=== PATIENT | female | born 1985 | race Two or more races ===

== ENCOUNTER 2016-10-18 19:22 | Emergency (ER) | payer OTHER ==
[~2016-10-18] VITALS: Ht 152.4 cm; Wt 79.4 kg
[2016-10-18] MEDS ORDERED: IV NORMAL SALINE 1000ML BAG 1,000 ML IV SCH (19:59)
[2016-10-18] MEDS ORDERED: KETOROLAC 15 MG/ML VIAL. IV ONE (20:00)
[2016-10-18] MEDS ORDERED: ACETAMINOPHEN 500 MG TABLET PO ONE (20:00)
[2016-10-18] MEDS ORDERED: DIAZEPAM 5 MG TABLET PO ONE (20:00)
[2016-10-18 20:11] LABS: BILIRUBIN,URINE NEGATIVE (NEG); GLUCOSE,URINE NEGATIVE (NEG); NITRITE,URINE NEGATIVE (NEG); PROTEIN,URINE NEGATIVE (NEG-TRACE); UROBILINOGEN,URINE 0.2 mg/dL (0.2 mg/dL)
[2016-10-18 20:19] LABS: BACTERIA,URINE FEW /HPF (0-FEW); RBC,URINE 0 /HPF (0-2); SQUAMOUS EPITHELIAL CELL,UR OCC /LPF; WBC,URINE OCC /HPF (0-4)
[2016-10-18 21:08] LABS: BASO # 0.1 x10^3/uL (0.0-0.2); BASO % 1 % (0-3); EOS % 2 % (0-3); HEMATOCRIT 41.9 % (36.0-47.0); HEMOGLOBIN 14.3 g/dL (12.0-15.5); LYMPH # 3.6 x10^3/uL (1.0-4.8); LYMPH % 34 % (24-48); MEAN CORPUSCULAR HEMOGLOBIN 31 pg (25-35); MEAN CORPUSCULAR HGB CONC 34 g/dL (31-37); MEAN CORPUSCULAR VOLUME 92 fL (79-100); MONO % 5 % (0-9); NEUT % 59 % (31-73); PLATELET COUNT 238 x10^3/uL (140-400); RED BLOOD COUNT 4.55 x10^6/uL (3.50-5.40); RED CELL DISTRIBUTION WIDTH 12.5 % (11.5-14.5); WHITE BLOOD COUNT 10.7 x10^3/uL (4.0-11.0)
[2016-10-18 21:17] LABS: CALCIUM 9.2 mg/dL (8.5-10.1); CREATININE 0.8 mg/dL (0.6-1.0); GFR 83.7
[2016-10-18 21:23] LABS: ALBUMIN 3.6 g/dL (3.4-5.0); TOTAL BILIRUBIN 0.3 mg/dL (0.2-1.0); TOTAL PROTEIN 7.2 g/dL (6.4-8.2)
--- NOTE | 2016-10-18 21:53 | PHYS DOC ---
Past Medical History Past Medical History: No Pertinent History Past Surgical History: Tubal ligation, Other Additional Past Surgical Histo: HAND SURG, LEEP Alcohol Use: Occasionally Drug Use: None Adult General Chief Complaint Chief Complaint: HEADACHE HPI HPI Patient is a 31 year old female who presents with fatigue, STEIN, lightheadedness. Patient reports she has been having symptoms for more than a week. She describes a throbbing pain in her L lateral neck that is causing a mild STEIN. She also reports feeling a little lightheaded, has a scratchy throat, and has intermittent sharp pains in the center of her chest (not at this time). No fever, no SOB. Patient has tried tylenol and aleve with insufficient relief but has not taken anything today for symptoms. Review of Systems Review of Systems Constitutional: Lightheaded. Denies fever or chills Eyes: Denies change in visual acuity or eye pain HENT: Scratchy throat. Denies nasal congestion Respiratory: Denies cough or shortness of breath Cardiovascular: Intermittent substernal chest pain GI: Denies abdominal pain, nausea, vomiting, bloody stools or diarrhea : Denies dysuria or hematuria Musculoskeletal: Denies back pain or joint pain Integument: Denies rash or skin lesions Neurologic: Posterior headache. Denies focal weakness or sensory changes Current Medications Current Medications Current Medications Medications (Trade) Dose Ordered Sig/Avelino Start Time Stop Time Status Last Admin Dose Admin Acetaminophen (Tylenol) 1,000 mg 1X ONCE 10/18/16 20:00 10/18/16 20:09 DC 10/18/16 21:12 1,000 MG Diazepam (Valium) 5 mg 1X ONCE 10/18/16 20:00 10/18/16 20:09 DC 10/18/16 21:13 5 MG Ketorolac Tromethamine (Toradol) 15 mg 1X ONCE 10/18/16 20:00 10/18/16 20:09 DC 10/18/16 21:13 15 MG Sodium Chloride (Iv Sodium Chloride 0.9% 1000ml Bag) 1,000 ml @ 1,000 mls/hr Q1H 10/18/16 19:59 10/18/16 20:58 DC 10/18/16 21:13 1,000 MLS/HR Allergies Allergies Allergies Coded Allergies Type Severity Reaction Last Updated Verified No Known Drug Allergies 10/18/16 No Physical Exam Physical Exam Constitutional: Well developed, well nourished, no acute distress, non-toxic appearance HENT: Normocephalic, atraumatic, bilateral external ears normal. Oropharynx clear without erythema or exudate Eyes: PERRL, EOMI, conjunctiva normal, no discharge Neck: Normal range of motion, no stridor. Knot in paraspinal muscle on L posterior neck Cardiovascular: Heart rate normal, regular rhythm, no murmur Lungs & Thorax: Bilateral breath sounds clear to auscultation Abdomen: Bowel sounds normal, soft, non-distended, no TTP Skin: Warm, dry, no erythema, no rash Extremities: No obvious deformity, no edema Neurologic: Alert and oriented X 3, GCS 15, CN II-XII grossly intact, strength intact and symmetrical throughout, sensation to light touch intact throughout, no dystaxia noted Current Patient Data Vital Signs Vital Signs Date Time Temp Pulse Resp B/P Pulse Ox O2 Delivery O2 Flow Rate FiO2 10/18/16 22:00 150/75 10/18/16 21:30 80 23 100 10/18/16 20:00 Room Air 10/18/16 19:28 99.9 99.9 Lab Values Laboratory Tests Test 10/18/16 19:02 10/18/16 19:55 10/18/16 21:00 POC Urine HCG, Qualitative Hcg negative (Negative) Urine Color Yellow Urine Clarity Clear Urine pH 6.0 Urine Specific Mora 1.010 Urine Protein Negativemg/dL (NEG-TRACE) Urine Glucose (UA) Negativemg/dL (NEG) Urine Ketones (Stick) Negativemg/dL (NEG) Urine Blood Negative (NEG) Urine Nitrite Negative (NEG) Urine Bilirubin Negative (NEG) Urine Urobilinogen Dipstick 0.2mg/dL (0.2 mg/dL) Urine Leukocyte Esterase Negative (NEG) Urine RBC 0/HPF (0-2) Urine WBC Occ/HPF (0-4) Urine Squamous Epithelial Cells Occ/LPF Urine Bacteria Few/HPF (0-FEW) White Blood Count 10.7x10^3/uL (4.0-11.0) Red Blood Count 4.55x10^6/uL (3.50-5.40) Hemoglobin 14.3g/dL (12.0-15.5) Hematocrit 41.9% (36.0-47.0) Mean Corpuscular Volume 92fL (79-100) Mean Corpuscular Hemoglobin 31pg (25-35) Mean Corpuscular Hemoglobin Concent 34g/dL (31-37) Red Cell Distribution Width 12.5% (11.5-14.5) Platelet Count 238x10^3/uL (140-400) Neutrophils (%) (Auto) 59% (31-73) Lymphocytes (%) (Auto) 34% (24-48) Monocytes (%) (Auto) 5% (0-9) Eosinophils (%) (Auto) 2% (0-3) Basophils (%) (Auto) 1% (0-3) Neutrophils # (Auto) 6.3x10^3uL (1.8-7.7) Lymphocytes # (Auto) 3.6x10^3/uL (1.0-4.8) Monocytes # (Auto) 0.6x10^3/uL (0.0-1.1) Eosinophils # (Auto) 0.2x10^3/uL (0.0-0.7) Basophils # (Auto) 0.1x10^3/uL (0.0-0.2) Sodium Level 141mmol/L (136-145) Potassium Level 4.0mmol/L (3.5-5.1) Chloride Level 104mmol/L (98-107) Carbon Dioxide Level 25mmol/L (21-32) Anion Gap 12 (6-14) Blood Urea Nitrogen 16mg/dL (7-20) Creatinine 0.8mg/dL (0.6-1.0) Estimated GFR (Cockcroft-Gault) 83.7 BUN/Creatinine Ratio 20 (6-20) Glucose Level 113mg/dL (70-99) H Calcium Level 9.2mg/dL (8.5-10.1) Total Bilirubin 0.3mg/dL (0.2-1.0) Aspartate Amino Transferase (AST) 19U/L (15-37) Alanine Aminotransferase (ALT) 32U/L (14-59) Alkaline Phosphatase 56U/L (46-116) Total Protein 7.2g/dL (6.4-8.2) Albumin 3.6g/dL (3.4-5.0) Albumin/Globulin Ratio 1.0 (1.0-1.7) Laboratory Tests 10/18/16 21:00 Laboratory Tests 10/18/16 21:00 EKG EKG EKG (my read): sinus rhythm, rate 71, normal axis, intervals wnl, no acute ischemic changes Radiology/Procedures Radiology/Procedures CXR (my read): No acute abnormality Course & Med Decision Making Course & Med Decision Making Pertinent Labs and Imaging studies reviewed. (See chart for details) Patient is 31 year old female who presents with multiple complaints. Posterior head pain apparently due to muscle spasm in neck (trapezius vs capitis muscle?) . May have mild viral syndrome as well. Will check EKG and CXR given c/o intermittent chest pain, although I do not believe there is a serious etiology for this. Will also check labs, UA. IV fluid bolus, muscle relaxant, acetaminophen, toradol ordered for symptom relief. Blood work and UA unremarkable. EKG and CXR without concerning findings per my read. Discussed results with patient, who says her STEIN has resolved. Will plan discharge home with rx for NSAID and muscle relaxant. Discharged with instructions for follow up and return precautions. Dragon Disclaimer Dragon Disclaimer This electronic medical record was generated, in whole or in part, using a voice recognition dictation system. Departure Departure Impression: Primary Impression: Neck muscle spasm Disposition: HOME, SELF-CARE Condition: IMPROVED Referrals: NO PCP (PCP) Patient Instructions: Muscle Cramps Additional Instructions: Thank you for allowing us to provide care today in the Emergency Department. Take the provided medication as directed. Use caution when taking the muscle relaxant as it can make you drowsy. Schedule a follow up appointment with a primary care doctor using the provided list. Return promptly to the Emergency Department if you develop any new or concerning symptoms. Scripts Diazepam (Valium)5 Mg Tablet5 Mg PO TID PRN MUSCLE SPASMS #12 TAB Prov:BILL CHAN MD 10/18/16 Naproxen 375 Mg [id number] Mg PO BID PRN PAIN #20 Prov:BILL CHAN MD 10/18/16 BILL CHAN MD Oct 18, 2016 21:53
[2016-10-18 22:00] VITALS: BP 150/75
[2016-10-18] MEDS ORDERED: DIAZ5TAB PO (22:06)
[2016-10-18] MEDS ORDERED: NAPR375T3 PO (22:06)
--- NOTE | 2016-10-19 07:50 | RAD ---
EXAM: Chest, 2 views. HISTORY: Fatigue. COMPARISON: None. FINDINGS: Frontal and lateral views of the chest are obtained. There is no infiltrate, effusion or pneumothorax. The heart is normal in size. IMPRESSION: No acute pulmonary finding.
--- NOTE | 2016-10-19 09:13 | EKG ---
[facility] [address] [place] [address] Test Date: 2016-10-18 Test Time: 19:47:51 Pat Name: VINOD WILL Department: Room: Gender: F Entry Level Project Coordinator: : 1985 Requested By: BILL CHAN Order Number: [id number] Reading MD: Kae Velarde Measurements Intervals [facility] Rate: 71 P: 34 SC: 182 QRS: 26 QRSD: 78 T: 27 QT: 386 QTc: 424 Interpretive Statements SINUS RHYTHM NORMAL EKG RI6.01 No previous ECG available for comparison Electronically Signed On 10-20-2016 19:01:41 CDT by Kae Velarde
== END 2016-10-18 22:33 | disposition home or self-care (01) ==
LOC: ER 19:22
DX: M62.838 Other muscle spasm (principal); R51 Headache; R53.83 Other fatigue; R42 Dizziness and giddiness
CPT/HCPCS: 36415; 71020; 80053; 81001; 81025; 85027; 93005; 96361; 96374; 99285; J1885; J7030

== ENCOUNTER 2018-03-17 21:40 | Emergency (ER) | payer SELFPAY ==
[~2018-03-17] VITALS: Ht 152.4 cm; Wt 77.1 kg
[~2018-03-17 21:40] MED LIST: DIAZ5TAB PO; NAPR-695 PO
[2018-03-17 22:20] VITALS: BP 160/79
[2018-03-17] MEDS ORDERED: DEXAMETHASONE SOD PHOS 4 MG/ML VIAL IV ONE (23:15)
[2018-03-17] MEDS ORDERED: DEXAMETHASONE SOD PHOS 4 MG/ML VIAL IM ONE (23:15)
[2018-03-17] MEDS ORDERED: CLINDAMYCIN IM 600 MG/4 ML VIAL. IM ONE (23:15)
[2018-03-17] MEDS ORDERED: HYDROcodone/APAP 5/325MG 1 TAB TABLET PO ONE (23:15)
[2018-03-17] MEDS ORDERED: CLIN300C8 PO (23:58)
[2018-03-17] MEDS ORDERED: PRED-220 PO (23:58)
--- NOTE | 2018-03-17 23:58 | PHYS DOC ---
Past Medical History Past Medical History: No Pertinent History Past Surgical History: Tubal ligation, Other Additional Past Surgical Histo: HAND SURG, LEEP Alcohol Use: Occasionally Drug Use: None Adult General Chief Complaint Chief Complaint: SORE THROAT HPI HPI Patient is a 33 year old female presents to the ED complaining of sore throat 4 days ago. Patient states 3 days ago she was treated with penicillin after having a positive strep test at another facility. States she is still having throat pain. States she feels like the antibiotics are not working. Pain with swallowing. Describes the pain as sharp. Rates the pain as 7 out of 10. States she's been taking Tylenol at home. Denies fever, nausea/vomiting, inability to swallow, abdominal pain, conjunctivitis, neck pain, headache, photophobia, chest pain or shortness of breath. Review of Systems Review of Systems Constitutional: Denies fever or chills [] Eyes: Denies change in visual acuity, redness, or eye pain [] HENT: Complains of sore throat. Denies nasal congestion. Respiratory: Denies cough or shortness of breath [] Cardiovascular: No additional information not addressed in HPI [] GI: Denies abdominal pain, nausea, vomiting, bloody stools or diarrhea [] : Denies dysuria or hematuria [] Musculoskeletal: Denies back pain or joint pain [] Integument: Denies rash or skin lesions [] Neurologic: Denies headache, focal weakness or sensory changes [] All other systems were reviewed and found to be within normal limits, except as documented in this note. Current Medications Current Medications Current Medications Medications (Trade) Dose Ordered Sig/[facility] Start Time Stop Time Status Last Admin Dose Admin Acetaminophen/ Hydrocodone Bitart (Lortab 5/325) 1 tab 1X ONCE 03/17/18 23:15 03/17/18 23:16 DC 03/17/18 23:14 1 TAB Clindamycin Phosphate (Cleocin Im) 600 mg 1X ONCE 03/17/18 23:15 03/17/18 23:16 DC 03/17/18 23:14 600 MG Dexamethasone Sodium Phosphate (Decadron) 8 mg 1X ONCE 03/17/18 23:15 03/17/18 23:16 DC 03/17/18 23:14 8 MG Allergies Allergies Allergies Coded Allergies Type Severity Reaction Last Updated Verified No Known Drug Allergies 3/31/17 No Physical Exam Physical Exam Constitutional: Well developed, well nourished, no acute distress, non-toxic appearance. [] HENT: Normocephalic, atraumatic, bilateral external ears normal, oropharynx moist, mild pharyngeal erythema with exudates. uvula midline. no abscess. nose normal. [] Eyes: PERRLA, EOMI, conjunctiva normal, no discharge. [] Neck: Normal range of motion, no tenderness, supple, no stridor. [] Cardiovascular:Heart rate regular rhythm, no murmur [] Lungs & Thorax: Bilateral breath sounds clear to auscultation [] Abdomen: Bowel sounds normal, soft, no tenderness, no masses, no pulsatile masses. [] Skin: Warm, dry, no erythema, no rash. [] Neurologic: Alert and oriented X 3, normal motor function, normal sensory function, no focal deficits noted. [] Psychologic: Affect normal, judgement normal, mood normal. [] Current Patient Data Vital Signs Vital Signs Date Time Temp Pulse Resp B/P (MAP) Pulse Ox O2 Delivery O2 Flow Rate FiO2 03/17/18 23:14 18 99 Room Air 03/17/18 22:20 99.8 96 160/79 (106) 99.8 EKG EKG [] Radiology/Procedures Radiology/Procedures [] Course & Med Decision Making Course & Med Decision Making Pertinent Labs and Imaging studies reviewed. (See chart for details) []Patient given clindamycin, Decadron and Thurmond in the ED. States she is feeling much better. Patient tolerating by mouth. Uvula midline. No peritonsillar abscess. We will treat outpatient with clindamycin and short course of steroids. Discussed symptomatic treatment, hydration [id number] medications. Discussed follow-up for reevaluation in 3 days. Provided contact information/education. Discussed reasons to return to the ED. Patient understands and agrees with plan. Attending physician attestation: I was working at the time of this patient's ER visit and was available for consultation, but did not personally interview, examine, or directly take part in the patient's care. DO Cassie Adams Disclaimer Cassie Disclaimer This electronic medical record was generated, in whole or in part, using a voice recognition dictation system. Departure Departure Impression: Primary Impression: Pharyngitis Disposition: 01 HOME, SELF-CARE Condition: IMPROVED Referrals: NO PCP (PCP) TITO DE DIOS MD Patient Instructions: Viral and Bacterial Pharyngitis Scripts Prednisone (PREDNISONE ) 10 Mg Tablet 30 MG PO DAILY for 4 Days, #12 TAB 0 Refills Prov: KELLY JOSE 03/17/18 Clindamycin Hcl (CLINDAMYCIN HCL) 300 Mg Capsule 1 CAP PO TID for 7 Days, #21 CAP Prov: KELLY JOSE 03/17/18 KELLY JOSE Mar 17, 2018 23:58 KAYLEY CEBALLOS DO Mar 21, 2018 06:20
== END 2018-03-18 00:03 | disposition home or self-care (01) ==
LOC: ER 21:40
DX: J02.9 Acute pharyngitis, unspecified (principal)
CPT/HCPCS: 96372; 99284; J1100; J3490

== ENCOUNTER 2018-09-02 14:12 | Emergency (ER) | payer SELFPAY ==
[~2018-09-02] VITALS: Ht 149.9 cm; Wt 77.1 kg
[~2018-09-02 14:12] MED LIST changes: +CLIN300C8 PO; +PRED-220 PO
[2018-09-02 14:15] VITALS: BP 148/92
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
== END 2018-09-02 15:10 | disposition home or self-care (01) ==
LOC: ER 14:12
DX: S81.812D Laceration without foreign body, left lower leg, subsequent encounter (principal); Z90.89 Acquired absence of other organs; V49.9XXD Car occupant (driver) (passenger) injured in unspecified traffic accident, subsequent encounter
CPT/HCPCS: 99282

== ENCOUNTER 2019-03-25 21:55 | Emergency (ER) | payer OTHER ==
[~2019-03-25] VITALS: Ht 149.9 cm; Wt 77.1 kg
[2019-03-25 23:45] VITALS: BP 148/86
[2019-03-26] MEDS ORDERED: AZITHROMYCIN 250 MG TABLET. PO ONE (02:00)
[2019-03-26] MEDS ORDERED: cefTRIAXone IM 250 MG VIAL IM ONE (02:00)
[2019-03-26 02:08] LABS: BILIRUBIN,URINE NEGATIVE (NEG); CLARITY,URINE CLEAR; COLOR,URINE YELLOW; NITRITE,URINE NEGATIVE (NEG); PH,URINE 5.5; PROTEIN,URINE NEGATIVE (NEG-TRACE); UROBILINOGEN,URINE 0.2 mg/dL (0.2 mg/dL)
[2019-03-26 02:15] LABS: BACTERIA,URINE MANY /HPF (0-FEW); RBC,URINE OCC /HPF (0-2); SQUAMOUS EPITHELIAL CELL,UR MOD /LPF
[2019-03-26] MEDS ORDERED: METR500T PO (02:33)
--- NOTE | 2019-03-26 02:33 | PHYS DOC ---
Past Medical History Past Medical History: No Pertinent History Past Surgical History: Tubal ligation Additional Past Surgical Histo: LEEP, LEFT KNEE, RIGHT ANKLE Alcohol Use: Occasionally Drug Use: None Adult General Chief Complaint Chief Complaint: VAGINAL PROBLEM HPI HPI Patient is a 34 year old [f__sex] who presents with [] Review of Systems Review of Systems Constitutional: Denies fever or chills [] Eyes: Denies change in visual acuity, redness, or eye pain [] HENT: Denies nasal congestion or sore throat [] Respiratory: Denies cough or shortness of breath [] Cardiovascular: No additional information not addressed in HPI [] GI: Denies abdominal pain, nausea, vomiting, bloody stools or diarrhea [] : Denies dysuria or hematuria [] Musculoskeletal: Denies back pain or joint pain [] Integument: Denies rash or skin lesions [] Neurologic: Denies headache, focal weakness or sensory changes [] Endocrine: Denies polyuria or polydipsia [] All other systems were reviewed and found to be within normal limits, except as documented in this note. Current Medications Current Medications Current Medications Medications (Trade) Dose Ordered Sig/Avelino Start Time Stop Time Status Last Admin Dose Admin Azithromycin (Zithromax) 1,000 mg 1X ONCE 03/26/19 02:00 03/26/19 02:01 DC 03/26/19 02:24 1,000 MG Ceftriaxone Sodium (Rocephin Im) 250 mg 1X ONCE 03/26/19 02:00 03/26/19 02:01 DC 03/26/19 02:24 250 MG Allergies Allergies Allergies Coded Allergies Type Severity Reaction Last Updated Verified No Known Drug Allergies 10/18/16 No Physical Exam Physical Exam Constitutional: Well developed, well nourished, no acute distress, non-toxic appearance. [] HENT: Normocephalic, atraumatic, bilateral external ears normal, oropharynx moist, no oral exudates, nose normal. [] Eyes: PERRLA, EOMI, conjunctiva normal, no discharge. [] Neck: Normal range of motion, no tenderness, supple, no stridor. [] Cardiovascular:Heart rate regular rhythm, no murmur [] Lungs & Thorax: Bilateral breath sounds clear to auscultation [] Abdomen: Bowel sounds normal, soft, no tenderness, no masses, no pulsatile masses. [] Skin: Warm, dry, no erythema, no rash. [] Back: No tenderness, no CVA tenderness. [] Extremities: No tenderness, no cyanosis, no clubbing, ROM intact, no edema. [] Neurologic: Alert and oriented X 3, normal motor function, normal sensory function, no focal deficits noted. [] Psychologic: Affect normal, judgement normal, mood normal. [] Current Patient Data Vital Signs Vital Signs Date Time Temp Pulse Resp B/P (MAP) Pulse Ox O2 Delivery O2 Flow Rate FiO2 03/25/19 23:45 97.9 56 16 148/86 (106) 100 Room Air 97.9 Lab Values Laboratory Tests Test 03/26/19 01:45 Urine Collection Type Unknown Urine Color Yellow Urine Clarity Clear Urine pH 5.5 Urine Specific Bells 1.020 Urine Protein Negative mg/dL (NEG-TRACE) Urine Glucose (UA) Negative mg/dL (NEG) Urine Ketones (Stick) Negative mg/dL (NEG) Urine Blood Moderate (NEG) Urine Nitrite Negative (NEG) Urine Bilirubin Negative (NEG) Urine Urobilinogen Dipstick 0.2 mg/dL (0.2 mg/dL) Urine Leukocyte Esterase Small (NEG) Urine RBC Occ /HPF (0-2) Urine WBC 1-4 /HPF (0-4) Urine Squamous Epithelial Cells Mod /LPF Urine Bacteria Many /HPF (0-FEW) Urine Mucus Marked /LPF Microbiology 03/26/19 Wet Prep - Final, Complete EKG EKG [] Radiology/Procedures Radiology/Procedures [] Course & Med Decision Making Course & Med Decision Making Pertinent Labs and Imaging studies reviewed. (See chart for details) [] Dragon Disclaimer Dragon Disclaimer This electronic medical record was generated, in whole or in part, using a voice recognition dictation system. Departure Departure Impression: Primary Impression: Concern about STD in female without diagnosis Additional Impression: Bacterial vaginosis Disposition: 01 HOME, SELF-CARE Condition: STABLE Referrals: MJ HOUSE MD (PCP) Patient Instructions: Bacterial Vaginosis, [id number], Sexually Transmitted Disease, [id number] Scripts Fluconazole (DIFLUCAN) 200 Mg Tablet 1 TAB PO DAILY, #2 TAB Take after finishing antibiotics. May continue 1 week later if symptoms persist. Prov: TITO BURGOS DO 03/26/19 Metronidazole (FLAGYL) 500 Mg Tablet 500 MG PO BID for Vaginosis, #14 TAB Prov: TITO BURGOS DO 03/26/19 Problem Qualifiers TITO BURGOS DO Mar 26, 2019 02:33
[2019-03-26] MEDS ORDERED: FLUC200T PO (02:41)
[2019-03-29 18:13] LABS: GC PROBE Negative (Negative)
== END 2019-03-26 02:43 | disposition home or self-care (01) ==
LOC: ER 21:55
DX: N76.0 Acute vaginitis (principal); B96.89 Other specified bacterial agents as the cause of diseases classified elsewhere; Z20.2 Contact with and (suspected) exposure to infections with a predominantly sexual mode of transmission; Z98.51 Tubal ligation status
CPT/HCPCS: 81001; 81025; 87086; 87491; 87591; 96372; 99284; J0696; Q0111; Q0144

== ENCOUNTER 2020-05-15 19:37 | Emergency (ER) | payer SELFPAY ==
[~2020-05-15] VITALS: Ht 177.8 cm; Wt 79.0 kg
[~2020-05-15 19:37] MED LIST changes: +FLUC200T PO; +IBUP-1027 PO; +METR500T PO; +OSEL75CA PO
[2020-05-15 21:30] VITALS: BP 179/111
[2020-05-15] MEDS ORDERED: ALBU2.5V8 IH (22:43)
[2020-05-15] MEDS ORDERED: AZIT250T PO (22:43)
[2020-05-15] MEDS ORDERED: CODE10LI PO (22:43)
--- NOTE | 2020-05-15 22:44 | PHYS DOC ---
Past Medical History Past Medical History: No Pertinent History Past Surgical History: Tubal ligation Additional Past Surgical Histo: LEEP, LEFT KNEE, RIGHT ANKLE Smoking Status: Never Smoker Alcohol Use: Occasionally Drug Use: None General Adult EDM: Chief Complaint: COUGH HPI: HPI: Patient is a 35 year [id number]-kvgj-mco female with no past medical history is not a smoker presents for a 1 month history of cough with sputum production congestion and chest discomfort. Patient states she was previously seen at [facility] had a Covid test that was negative told it was most likely viral and discharged home on no medications. Patient states she has been taken [id number] TheraFlu with no relief. Patient denies any fevers chills. On exam patient is alert and oriented x4 she is nontoxic-appearing. Review of Systems: Review of Systems: Constitutional: Denies fever or chills. [] Eyes: Denies change in visual acuity. [] HENT: Denies nasal congestion or sore throat. [] Respiratory: Positive cough positive shortness of breath Cardiovascular: As it of chest pain GI: Denies abdominal pain, nausea, vomiting, bloody stools or diarrhea. [] : Denies dysuria. [] Musculoskeletal: Denies back pain or joint pain. [] Integument: Denies rash. [] Neurologic: Denies headache, focal weakness or sensory changes. [] Endocrine: Denies polyuria or polydipsia. [] Lymphatic: Denies swollen glands. [] Psychiatric: Denies depression or anxiety. [] Heart Score: Risk Factors: Risk Factors: DM, Current or recent (<one month) smoker, HTN, HLP, family history of CAD, obesity. Risk Scores: Score 0 - 3: 2.5% MACE over next 6 weeks - Discharge Home Score 4 - 6: 20.3% MACE over next 6 weeks - Admit for Clinical Observation Score 7 - 10: 72.7% MACE over next 6 weeks - Early Invasive Strategies Allergies: Allergies: Allergies Coded Allergies Type Severity Reaction Last Updated Verified No Known Drug Allergies 10/18/16 No Physical Exam: PE: Constitutional: Well developed, well nourished, no acute distress, non-toxic appearance. [] HENT: Normocephalic, atraumatic, bilateral external ears normal, oropharynx moist, no oral exudates, nose normal. [] Eyes: PERRLA, EOMI, conjunctiva normal, no discharge. [] Neck: Normal range of motion, no tenderness, supple, no stridor. [] Cardiovascular:Heart rate regular rhythm, no murmur [] Lungs & Thorax: Patient in no respiratory distress Abdomen: Bowel sounds normal, soft, no tenderness, no masses, no pulsatile m asses. [] Skin: Warm, dry, no erythema, no rash. [] Back: No tenderness, no CVA tenderness. [] Extremities: No tenderness, no cyanosis, no clubbing, ROM intact, no edema. [] Neurologic: Alert and oriented X 3, normal motor function, normal sensory function, no focal deficits noted. [] Psychologic: Affect normal, judgement normal, mood normal. [] Current Patient Data: Vital Signs: Vital Signs Date Time Temp Pulse Resp B/P (MAP) Pulse Ox O2 Delivery O2 Flow Rate FiO2 05/15/20 21:30 98.8 70 18 179/111 (133) 100 Room Air 98.8 EKG: EKG: [] Radiology/Procedures: Radiology/Procedures: [] Course & Med Decision Making: Course & Med Decision Making Pertinent Labs and Imaging studies reviewed. (See chart for details) [] Dragon Disclaimer: Mobile Roadie Disclaimer: This electronic medical record was generated, in whole or in part, using a voice recognition dictation system. Departure Departure Impression: Primary Impression: Cough Additional Impression: Bronchitis Disposition: 01 DC HOME SELF CARE/HOMELESS Condition: STABLE Referrals: NO PCP (PCP) Patient Instructions: Acute Bronchitis Scripts Albuterol Sulfate (PROAIR HFA INHALER) 8.5 Gm Hfa.aer.ad 2 PUFF IH PRN Q4-6HRS PRN for wheezing for 21 Days, #1 INHALER 0 Refills Prov: NEEL CARRINGTON I DO 05/15/20 Codeine Phosphate/Guaifenesin (Guaifen-Codeine 200-20 mg/10Ml) 10 Ml Liquid 10 ML PO Q6-8HRS for 10 Days, #100 ML Prov: NEEL CARRINGTON I DO 05/15/20 Azithromycin (ZITHROMAX) 250 Mg Tablet 1 PKG PO UD, #6 TAB Prov: NEEL CARRINGTON I DO 05/15/20 NEEL CARRINGTON I DO May 15, 2020 22:44
== END 2020-05-15 22:52 | disposition home or self-care (01) ==
LOC: ER 19:37
DX: J40 Bronchitis, not specified as acute or chronic (principal); R07.89 Other chest pain
CPT/HCPCS: 99283